=== PATIENT | male | born 2000 | race Caucasian/White ===

== ENCOUNTER 2020-12-03 00:43 | Emergency (ER) | payer MEDICAID ==
[~2020-12-03] VITALS: Ht 182.9 cm; Wt 86.0 kg
[2020-12-03 00:58] VITALS: BP 121/66
--- NOTE | 2020-12-03 01:06 | NUR ---
PT. WANTS TO BE TAKEN STRAIGHT BACK TO THE ED. RN EXPLAINED THERE IS A WAIT AND ASSISTED THE PT. WITH ELEVATING HIS SPRAINED ANKLE. PT.'S PUPILS ARE DILATED AT 4 MM. PT. DENIES DRUG USE.
--- NOTE | 2020-12-03 03:39 | NUR ---
pt wheeled back to room. c/o pain to right ankle. pt states he has been seen before for it, and they took xrays and he was told it was a sprain. swollen right foot.
[2020-12-03] MEDS ORDERED: IBUPROFEN 600 MG TABLET ONE (03:47)
--- NOTE | 2020-12-03 03:53 | NUR ---
PT GIVEN F/U AND D/C INSTRUCTIONS AND HE V/U. PT HAS HIS OWN CRUTCHES AND WHEELCHAIRED TO THE DISCHARGE DESK.
[2020-12-03] MEDS ORDERED: IBUPROFEN 200 MG TABLET PO ONE (04:00)
== END 2020-12-03 04:13 | disposition home or self-care (01) ==
LOC: ED 03:55
DX: S93.491A Sprain of other ligament of right ankle, initial encounter (principal); X58.XXXA Exposure to other specified factors, initial encounter; Y93.89 Activity, other specified; Y92.89 Other specified places as the place of occurrence of the external cause; Y99.8 Other external cause status
CPT/HCPCS: 99283

== ENCOUNTER 2021-02-15 18:09 | Emergency (ER) | payer MEDICAID ==
[~2021-02-15] VITALS: Ht 182.9 cm; Wt 80.0 kg
--- NOTE | 2021-02-15 18:41 | NUR ---
ROOM SECURED, PT UNDRESSED AND INTO GOWN. BACKPACK AND CLOTHING INVENTORIED/BELONGING LIST SIGNED BY PT. PT A/O X 3, COOPERATIVE WITH CARE. PT STATES HE HEARS VOICES TELLING HIM TO KILL SELF BUT DOES NOT WANT TO ACT ON IT. PT WITH HX OF PREVIOUS SI WITH PLAN "A LONG TIME AGO", PLAN TO OD BUT NO ATTEMPT MADE. URINE COLLECTED/SENT TO LAB. SITTER AT [facility] FOR CLOSE OBS.
--- NOTE | 2021-02-15 18:49 | NUR ---
Report from Marcie IRVIN
[2021-02-15 19:06] LABS: AMPHETAMINE SCREEN, URINE Negative (Negative); BARBITURATE SCREEN, URINE Negative (Negative); BENZODIAZEPINE SCREEN, URINE Negative (Negative); CANNABINOID SCREEN, URINE Negative (Negative); COCAINE SCREEN, URINE Negative (Negative); METHADONE SCREEN, URINE Negative (Negative); OPIATE SCREEN, URINE Negative (Negative)
--- NOTE | 2021-02-15 19:18 | NUR ---
Breathlyzer preformed per socialwork request. Pt CLAY 0.000
[2021-02-15 19:36] LABS: BASOPHILS % (AUTO) 0 % (0-1); EOSINOPHILS % (AUTO) 3 % (1-7); LYMPHOCYTES % (AUTO) 21 % (22-44); MEAN CORPUSCULAR HEMOGLOBIN 30.5 pg (27.5-34.5); MEAN CORPUSCULAR HGB CONC 33.9 g/dL (33.2-36.2); MEAN PLATELET VOLUME 8.7 fL (7.4-10.4); MONOCYTES % (AUTO) 13 % (2-9); NEUTROPHILS % (AUTO) 63 % (42-75); PLATELET COUNT 177 x10^3/uL (130-400); RED BLOOD COUNT 4.56 x10^6/uL (4.38-5.82); RED CELL DISTRIBUTION WIDTH 12.3 % (9.4-14.8)
[2021-02-15 19:49] LABS: ALANINE AMINOTRANSFERASE 17 U/L (12-78); ALBUMIN 3.7 g/dL (3.4-5.0); ANION GAP 5 mmol/L (5-15); CALCIUM 8.8 mg/dL (8.5-10.1); CHLORIDE 109 mmol/L (98-107); CREATININE 0.64 mg/dL (0.7-1.3)
[2021-02-15 19:50] LABS: SALICYLATE LEVEL < 1.7 mg/dL (2.8-20.0)
--- NOTE | 2021-02-15 19:56 | NUR ---
Pt given ice water per request and tissues for his runny nose, NADN, WCTM
[2021-02-15 19:59] LABS: ALKALINE PHOSPHATASE 59 U/L (45-117); TOTAL PROTEIN 6.6 g/dL (6.4-8.2)
[2021-02-15 20:12] VITALS: BP 119/78
--- NOTE | 2021-02-15 20:48 | NUR ---
Pt resting in bed, given blankets and positioned for comfort, sitter in view of pt
--- NOTE | 2021-02-15 21:25 | NUR ---
Pt sitting up in bed, provided sandwhich and water, watching tv, sitter in view of pt
--- NOTE | 2021-02-15 22:11 | NUR ---
Pt continues to sit up in bed, sitter in view of ptSANDHYA
--- NOTE | 2021-02-15 22:53 | NUR ---
THROUGHPUT RN: PACKET FAXED TO [facility], [facility] AND [facility] AT THIS TIME.
--- NOTE | 2021-02-15 23:13 | NUR ---
Hansa from [facility] accepting; Dr. Chakraborty. Can accept at 0130.
--- NOTE | 2021-02-15 23:19 | NUR ---
Report to Hansa from [facility]
--- NOTE | 2021-02-15 23:50 | NUR ---
THROUGHPUT RN: TRANSPORT ARRANGED WITH [facility] FOR AFTER 0100.
== END 2021-02-16 01:18 | disposition home or self-care (01) ==
LOC: ED 22:41
DX: R45.851 Suicidal ideations (principal); F23 Brief psychotic disorder; Z72.9 Problem related to lifestyle, unspecified
CPT/HCPCS: 36415; 80053; 80299; 80307; 80320; 80329; 84443; 85025; 99285; G0480